=== PATIENT | male | born 1960 | race Caucasian/White ===

== ENCOUNTER 2023-07-08 15:28 | Emergency (ER) | payer OTHER ==
[~2023-07-08] VITALS: Ht 177.8 cm; Wt 98.7 kg
[2023-07-08 15:29] VITALS: TEMP 98
[2023-07-08] MEDS ORDERED: NORCO, ANEXSIA 5/325MG TABLET (HYDROcodone/ACETAMINOPHEN) PO ONE (16:45)
[2023-07-08] MEDS ORDERED: NORCO 5/325MG TABLET (HOME DOSE PACK) PO ONE (17:25)
[2023-07-08] MEDS ORDERED: HYDR-3713 PO (17:27)
[2023-07-08 18:00] VITALS: BP 108/60; O2SAT 93
== END 2023-07-08 18:02 | disposition home or self-care (01) ==
LOC: M ED 15:28
DX: S22.31XA Fracture of one rib, right side, initial encounter for closed fracture (principal); S43.101A Unspecified dislocation of right acromioclavicular joint, initial encounter; W19.XXXA Unspecified fall, initial encounter; I10 Essential (primary) hypertension; Z88.0 Allergy status to penicillin; Z79.1 Long term (current) use of non-steroidal anti-inflammatories (NSAID); Y99.0 Civilian activity done for income or pay